=== PATIENT | female | born 1955 | race Caucasian/White ===

== ENCOUNTER → 2017-09-25 | Day surgery (SDC) | payer OTHER, BC ==
--- NOTE | 2017-09-26 17:52 | PATH ---
Surgical Pathology Report Patient Name: EVAN BERMUDEZ [facility]. Rec. #: [id number] /Age/Gender: 1955 (Age: 61) / F Account: [id number] Location: [facility] Taken: 09/25/2017 Received: 09/25/2017 Reported: 09/26/2017 Physicians: Kyaw Rubalcava M.D. Specimen(s) Received LEFT BREAST CORE BIOPSY Clinical History Nonpalpable lesion Ultrasound findings: Highly suspicious/malignant 1.67 cm Final Diagnosis BREAST, LEFT, RETRO, ULTRASOUND GUIDED CORE BIOPSY: INVASIVE DUCTAL CARCINOMA, MODERATELY DIFFERENTIATED, ATLEAST 8 MM IN THIS MATERIAL. COMMENT: Immunohistochemical stain performed and interpreted at [facility] show E-cadherin is positive, supporting ductal phenotype. Findings discussed with Dr. Vickers. Breast prognostic markers are pending and will be reported as an addendum. Electronically Signed Radha Valencia M.D. Addendum Reported: 09/27/2017 Addendum Diagnosis Results of Estrogen Receptor (ER) and Progesterone Receptor (VT) studies performed on block "1 " at [facility] are as follows: ER (clone [id number] mouse monoclonal antibody by [employer]): 99% nuclear staining with strong intensity (Positive). VT (clone16 mouse monoclonal antibody by [employer]): 99% nuclear staining with strong intensity (Positive). Results of Her2 (IHC) & Ki-67 studies performed on block "1 " at [place], [place] ([id number]) are as follows: Her2 IHC (EP3 from [employer], formerly known as [id number], using [employer] Polymer Refine detection kit): 1+ (Negative) Ki-67: ~10-12% (Low proliferative index) Positive and negative controls (internal if applicable) show appropriate results. Formalin fixation and cold ischemic times are within current ASCO/CAP recommendations for ER, VT and Her2 testing. Radha Valencia M.D. Gross Description Received in formalin labeled "left retro," are 6 avila-yellow, cylindrical portions of fibroadipose tissue ranging from 0.4-1.2 cm in length and averaging 0.1 cm in diameter. The specimens are submitted in toto in one cassette. Total formalin fixation time: Approximately 6 hours 09/25/201709/25/2017
== END | disposition home or self-care (01) ==
LOC: JRADUS-SUR 10:07
PROVIDERS: ATTEND Surgery
PROC: 0HBU3ZX Excision of Left Breast, Percutaneous Approach, Diagnostic (ICD-10-PCS; principal; 2017-09-25)
DX: C50.112 Malignant neoplasm of central portion of left female breast (principal); N63.42 Unspecified lump in left breast, subareolar
CPT/HCPCS: 19083; 88305-TC; 88341-TC; 88342-TC

== ENCOUNTER 2017-10-24 12:06 | Day surgery (SDC) | payer OTHER, BC ==
--- NOTE | 2017-10-20 13:32 | HP ---
Admitting History and Physical - Primary Care Physician PCP: Jarad Sharif - Admission Chief Complaint: left breast cancer History of Present Illness: 62 yo female noted to have a left retroareolar spiculated mass on screening mammo. US revealed a 2.4 cm irregular mass which was c/w mod def invasive ductal cancer via core bx. ER/AL positive, Her 2 negative. Patient underwent an MRI which was c/w known cancer without multifocal or contralateral dz. Patient is now presenting for [facility] with snbx, lympho and possible andx. History Source: Patient Limitations to Obtaining History: No Limitations - Past Medical History Renal/: Yes: Other (urinary incontinence) Home Medications - Allergies Allergies/Adverse Reactions: Allergies Allergy/AdvReac Type Severity Reaction Status Date / Time No Known Allergies Allergy Verified 10/20/17 13:44 - Home Medications Home Medications (free text): oxybutynin Family Disease History - Family Disease History Family History: Unremarkable Review of Systems - Review of Systems Breasts: reports: Other (slight flattening of the nipple) Physical Examination Constitutional: Yes: Well Nourished Breast(s): Yes: Other (Central left nipple flattening noted. On palpation, there is a central mass under the nipple. No other suspcious masses or adenopathy noted bilaterally.) Problem List - Problems (1) Breast cancer, left Code(s): C50.912 - MALIGNANT NEOPLASM OF UNSPECIFIED SITE OF LEFT FEMALE BREAST Qualifiers: Breast location: central portion of breast Patient sex: female Assessment/Plan Plan: Left central wide excision with snbx, lymphosctinogram possible andx
[2017-10-20 15:24] VITALS: BMI 28.8
[2017-10-24] MEDS ORDERED: PROPOFOL 20 ML ONE ×5 (13:26→15:03)
[2017-10-24] MEDS ORDERED: MIDAZOLAM HCL 2 MG/2 ML SINGLE DOSE VIAL ONE (13:26)
[2017-10-24] MEDS ORDERED: KETOROLAC TROMETHAMINE 30 MG/1 ML VIAL IVPUSH PRN (13:29)
[2017-10-24] MEDS ORDERED: ONDANSETRON 4 MG/2 ML VIAL IVPUSH PRN ×2 (13:29→15:58)
[2017-10-24] MEDS ORDERED: DEXTROSE 5%-0.45% SALINE 1,000 ML IV SCH (13:30)
[2017-10-24] MEDS ORDERED: ISOSULFAN BLUE 10 MG/ML VIAL SQ ONE (13:41)
[2017-10-24] MEDS ORDERED: PROMETHAZINE HCL 25 MG/1 ML VIAL IVPUSH PRN (15:58)
[2017-10-24] MEDS ORDERED: oxyCODONE HCL 5 MG TABLET PO PRN ×2 (15:58)
[2017-10-24] MEDS ORDERED: LACTATED RINGERS SOLUTION 1,000 ML IV SCH (16:00)
[2017-10-24] MEDS ORDERED: ONDANSETRON 4 MG/2 ML VIAL ONE (16:22)
[2017-10-24] MEDS ORDERED: ONDANSETRON 4 MG/2 ML VIAL IVPUSH ONE (16:25)
--- NOTE | 2017-10-24 16:49 | OP ---
DATE OF OPERATION: 10/24/2017 PREOPERATIVE DIAGNOSIS: Left central breast cancer. POSTOPERATIVE DIAGNOSIS: Left central breast cancer. PROCEDURE: Left breast central wide excision with left axillary sentinel lymph node biopsy. ANESTHESIA: General laryngeal mask airway. Patient also had a 3 x 4 cm tissue transfer closure. PRIMARY SURGEON: Lola Sharif M.D. CARTRIDGE FEEDER: Taz Mauricio COMPLICATIONS: There were no complications. Briefly, the patient is a 61-year-old G1, P1, post menopausal white female of [place] descent, was found to have a left retroareolar spiculated density on screening mammography in September of 2017. Measured about 2.4 cm on ultrasound, and ultrasound-guided core biopsy showed a moderately differentiated invasive duct cancer which was ER/NE positive, HER2/anastasiia negative, with a low Ki-67. MRI showed a localized cancer with no multifocal or contralateral disease. The patient was advised on undergoing a central left breast wide excision given the proximity of the cancer to the nipple as well as the sentinel lymph node biopsy. The patient was brought in for the procedure on October 24, 2017. She first underwent a lymphoscintigraphy through an intradermal periareolar injection of technetium and was brought to the [facility] holding area. In the holding area, site verification was made and informed consent was obtained. She did sign consent for quality of life study as well. The patient was brought into the operating room, laid on the OR table in the supine position. Venodynes were placed on the lower extremities prior to induction. She received a gram of Ancef prior to incision. She underwent general laryngeal mask airway anesthesia, and the left breast was sterilely prepped and draped in usual fashion with the left arm prepped in the field. 3 mL of Lymphazurin blue were injected intradermally and peritumorally around the central region of the left breast nipple areolar complex. Massage was instituted. An incision was made just below the hair-bearing area of the left axilla, and dissection was undertaken. A blue lymphatic was easily seen into a blue hot lymph node which had a 10-second gamma count of 1975. No other blue or hot nodes were found, and background count after removal of this one node was 30. The node was placed in formalin, sent to pathology for permanent section. Hemostasis was achieved. The axillary wound was then closed using interrupted 2-0 plain suture, and the skin was closed using interrupted 3-0 deep dermal Vicryl suture and a running 4-0 subcuticular Monocryl suture. The wide excision was then undertaken around the central region of the left breast around the palpable breast cancer. An elliptical incision was made, encompassing the nipple areolar complex, and dissection was undertaken around the cancer deep into the central region of the left breast through a wedge incision. This specimen was removed, and was oriented with a long lateral, short superior suture, and specimen radiograph showed multiple clips in question. Hemostasis was achieved. At this point separate margins were taken on the superior, inferior, medial, lateral, deep aspect with the sutures marking the biopsy cavity side and all these margins were sent separately to pathology in formalin. The breast parenchyma was then reapproximated using a 4 x 3 cm tissue transfer technique. The breast tissue was undermined and reapproximated in the central region of the left breast using 2-0 plain suture. The skin was closed using interrupted 3-0 deep dermal Vicryl suture and a running 4-0 subcuticular Monocryl suture. Mastisol and Steri-Strips were applied over the wound, compressive dressing placed over this. She was placed in a surgical bra postoperatively. The patient had laryngeal mask airway tube removed at the end of the case to be recovered in the post-anesthesia care unit and discharged home the same day when discharge criteria are met. All sponge, needle counts are correct at this point in the case. Estimated blood loss was about 50 mL. She was hemodynamically stable throughout. The patient will follow from the office in one week for formal wound pathology check. LOLA SHARIF M.D. [id number]
[2017-10-24] MEDS ORDERED: KETOROLAC TROMETHAMINE 30 MG/1 ML VIAL ONE (17:01)
[2017-10-24 17:52] VITALS: BP 147/81; PULSE 81; TEMP 99
== END 2017-10-24 17:50 | disposition home or self-care (01) ==
LOC: FASU 12:06
PROVIDERS: ATTEND Surgery Surgical Oncology
PROC: 0HBU0ZZ Excision of Left Breast, Open Approach (ICD-10-PCS; principal; 2017-10-24 14:29)
PROC: 07B60ZX Excision of Left Axillary Lymphatic, Open Approach, Diagnostic (ICD-10-PCS; 2017-10-24 14:29)
DX: C50.112 Malignant neoplasm of central portion of left female breast (principal)
CPT/HCPCS: 78195-TC; 94760; A9541

== ENCOUNTER 2018-11-23 07:46 | Day surgery (SDC) | payer BC ==
[2018-11-13 12:33] VITALS: BMI 29.2
[2018-11-23] MEDS ORDERED: EPINEPHrine/PF 1 MG/1 ML (1:1,000) AMPULE ONE (09:55)
[2018-11-23] MEDS ORDERED: LIDOCAINE 1%/EPI 1:100000 (20 ML MULTI DOSE VIAL) ONE (09:55)
[2018-11-23] MEDS ORDERED: LIDOCAINE HCL 1% PRESERVATIVE FREE - 30ML VIAL ONE (09:55)
[2018-11-23] MEDS ORDERED: MIDAZOLAM HCL 2 MG/2 ML SINGLE DOSE VIAL ONE (10:00)
[2018-11-23] MEDS ORDERED: PROPOFOL 20 ML ONE ×6 (10:15→11:08)
[2018-11-23] MEDS ORDERED: ceFAZolin SODIUM 1 GM VIAL ONE (10:43)
[2018-11-23] MEDS ORDERED: DEXAMETHASONE SOD PHOSPHATE 4 MG/1 ML VIAL ONE (10:46)
[2018-11-23] MEDS ORDERED: ONDANSETRON 4 MG/2 ML VIAL ONE ×2 (10:46→12:54)
[2018-11-23] MEDS ORDERED: LIDOCAINE 1%/EPI 1:100000 (50 ML MULTI DOSE VIAL) INF ONE (10:57)
[2018-11-23] MEDS ORDERED: BACITRACIN 15 GM TUBE TOPICAL OINTMENT ONE (12:14)
[2018-11-23] MEDS ORDERED: oxyCODONE HCL 5 MG TABLET PO PRN (12:41)
[2018-11-23] MEDS ORDERED: ONDANSETRON 4 MG/2 ML VIAL IVPUSH PRN (12:41)
[2018-11-23] MEDS ORDERED: LACTATED RINGERS SOLUTION 1,000 ML IV SCH (12:45)
--- NOTE | 2018-11-23 12:50 | OP ---
Operative Note - Note: Operative Date: 11/23/18 Pre-Operative Diagnosis: Left breast cancer(history of) Operation: subcutaneous tissue transfer from abdomen and flanks to left breast, Left nipple reconstruction and right breast reduction Surgeon: Toy Rodriguez Nocturnist Physician: Sindy Perez Anesthesiologist/[employer]ER: Lam Perez Anesthesia: General Estimated Blood Loss (mls): 30 Fluid Volume Replaced (mls): 1,200 Operative Report Dictated: Yes
--- NOTE | 2018-11-23 12:54 | SURG ---
Surgery Flexographic Press Set Up Operator Note Flexographic Press Set Up Operator: Sindy Perez PA-C Date of Service: 11/23/18 Diagnosis: left breast cancer Procedure: subcutaneous tissue transfer from abdomen and flanks to left breast, Left nipple reconstruction and right breast reduction I was present for the entirety of the operative procedure. For further detail, please refer to operative report. Visit type - Case Type Case Type: Scheduled - Emergency Emergency Visit: No - New patient This patient is new to me today: Yes Date on this admission: 11/23/18
[2018-11-23 14:41] VITALS: TEMP 98.2
[2018-11-23 15:26] VITALS: BP 126/74; PULSE 76
--- NOTE | 2018-11-24 07:23 | OP ---
DATE OF OPERATION: 11/23/2018 SURGEON: Lola Rodriguez MD ESTIMATING MANAGER SURGEON: ELIECER Galvan PREOPERATIVE DIAGNOSES: 1. Acquired left chest wall deformity status post left cancer procedure with extirpation of the breast. 2. Asymmetry of reconstructed chest wall. 3. Macromastia, right breast. 4. Absent nipple areolar complex, left breast. POSTOPERATIVE DIAGNOSES: 1. Acquired left chest wall deformity status post left cancer procedure with extirpation of the breast. 2. Asymmetry of reconstructed chest wall. 3. Macromastia, right breast. 4. Absent nipple areolar complex, left breast. OPERATIVE PROCEDURE: 1. Reconstruction of left chest wall with other technique. 2. Right breast reduction mammoplasty. 3. Left breast nipple areolar reconstruction. OPERATIVE INDICATION: The patient is a 63-year-old white female who presents with a central wide defect of the breast after extirpation of the breast itself and asymmetry of the reconstructed chest wall with volume discrepancy and absent nipple areolar complex. She also had significant macromastia of the right breast and required reduction for symmetry of the reconstructed breast. The risks and benefits of surgical versus nonsurgical alternatives as well as the material complications were described to the patient on multiple occasions preoperatively. She agreed to the planned procedure. All questions were asked and answered. OPERATIVE PROCEDURE IN DETAIL: The patient was taken to the operating room. After induction of general anesthesia in the supine position, both arms were extended and padded. Venodyne boots were placed. The time-out was called and placement of sterile drapes was carried out. Attention was first taken towards the markings, which were made in the standing position for outline of the nipple areolar complex reconstruction, the reduction mammoplasty, and the reconstruction of the breast with other technique. Then 1% local lidocaine anesthesia was infiltrated into the marked areas on both breasts, and after allowing topical anesthesia and hemostasis, attention was turned to the left breast. This breast had previously had radiation therapy, and induration and swelling was seen in the central portion of the breast. The markings for a nipple areolar reconstruction were reconfirmed and remarked, remeasured, and confirmed. At this point, attention was turned to the left breast. Incision was made according to the pattern of the left breast nipple areolar construction using double opposing tab reconstruction. Incisions were made under optical magnification of 2.5 power down through the skin, to the subcutaneous tissue, through the subcutaneous tissue, down to the underlying deep tissue of the breast. Flaps were elevated in the usual fashion for double opposing tab nipple areolar reconstruction. Flaps were then elevated, hemostasis meticulously obtained, and the flaps rotated into new position and tagged using 3-0 PDS sutures in interrupted fashion. A nipple areolar reconstruction was fashioned using this flap technique and then the tab was sutured down on top of the reconstructed nipple. Multiple layers of suture using 3-0 PDS suture on the deep tissue, 5-0 running plain catgut on the skin, and the double opposing tab. A circular areolar incision was made around the No. 42 nipple areolar cutter after this was done and then the wounds closed using 5-0 plain catgut suture in a running fashion. Attention was then turned to the abdomen. Incisions were planned in the abdominal wall just over the lateral flank to the deep fascia over the rectus and external oblique muscles after allowing topical anesthesia and hemostasis. Tissue was harvested from the right and left sides into reconstruct the breast with other technique. This tissue was then transferred to the back table, washed, cleansed, and prepared for reconstruction. Attention was turned to the right breast. A circular areolar incision with vertical component was carried out using the SPAIR technique with elevation of the breast with an inferior pedicle. A block of tissue was removed from the upper outer quadrant of the breast, lateral and medial portions of the superior crescent. Breast tissue was sent for pathologic diagnosis to rule out breast cancer. Once this was accomplished, copiously irrigated and hemostasis was obtained of the right breast. The pedicle was tacked into position using 2-0 Vicryl sutures in interrupted fashion and then the circumvertical incisions were tailor tacked into a new position, deepithelialized according to the pattern, and then sutured closed using multiple layers of suture with 3-0 PDS suture on the deep tissue, 3-0 on the deep dermal fashion, and a subcuticular suture with 3-0 V-Lock suture. The tissue was then transferred to the left breast in the central, medial, lateral components of the left breast, which had been previously harvested from the abdominal wall. Good shape and contour were then seen in a sitting position. All wounds were dressed sterilely with compressive and protective dressing over the new nipple areolar complex reconstruction and fluff dressings on the breast with a surgery bra. She tolerated the procedure well. She was awakened, extubated, and transferred to the recovery room in satisfactory condition. LOLA RODRIGUEZ M.D. [id number]
--- NOTE | 2018-11-27 15:04 | PATH ---
Surgical Pathology Report Patient Name: EVAN BERMUDEZ [facility]. Rec. #: [id number] /Age/Gender: 1955 (Age: 63) / F Account: [id number] Location[facility] Taken: 11/23/2018 Received: 11/23/2018 Reported: 11/27/2018 Physicians: Toy Rodriguez Specimen(s) Received RIGHT BREAST TISSUE Clinical History Left breast cancer, right reduction, rule out Ca Final Diagnosis BREAST TISSUE, RIGHT, REDUCTION: BENIGN BREAST TISSUE. SKIN WITH NO PATHOLOGIC FINDINGS. Electronically Signed Lindsay Garcia M.D. Gross Description Received in formalin labeled "right breast tissue," is a 49 g, 9.5 x 6.5 x 2.3 cm aggregate of multiple unoriented portions of fibroadipose tissue and avila, unremarkable skin. Sectioning reveals foci of white fibrous tissue. Tuck Pointer sections are submitted in 2 cassettes. /11/26/2018 saudi/11/26/2018
== END 2018-11-23 15:20 | disposition home or self-care (01) ==
LOC: FASU 07:46
PROVIDERS: ATTEND Plastic Surgery
PROC: 0HRU07Z Replacement of Left Breast with Autologous Tissue Substitute, Open Approach (ICD-10-PCS; principal; 2018-11-23 09:00)
PROC: 0HRX07Z Replacement of Left Nipple with Autologous Tissue Substitute, Open Approach (ICD-10-PCS; 2018-11-23 09:00)
PROC: 0HBT0ZZ Excision of Right Breast, Open Approach (ICD-10-PCS; 2018-11-23 09:00)
DX: M95.4 Acquired deformity of chest and rib (principal); Z85.3 Personal history of malignant neoplasm of breast; Z90.12 Acquired absence of left breast and nipple; N65.1 Disproportion of reconstructed breast; N62 Hypertrophy of breast; N64.59 Other signs and symptoms in breast
CPT/HCPCS: 88307-TC; 94760

== ENCOUNTER 2021-09-09 04:46 | Day surgery (SDC) | payer OTHER, BC ==
[2021-09-01 12:45] VITALS: BMI 28.3
[2021-09-09 14:41] VITALS: TEMP 98
[2021-09-09 15:33] VITALS: BP 129/64; PULSE 65
== END 2021-09-09 15:47 | disposition home or self-care (01) ==
LOC: JASU-ENDO 04:46
PROVIDERS: ATTEND Internal Medicine Gastroenterology
PROC: 0DJD8ZZ Inspection of Lower Intestinal Tract, Via Natural or Artificial Opening Endoscopic (ICD-10-PCS; principal; 2021-09-09 13:15)
DX: Z12.11 Encounter for screening for malignant neoplasm of colon (principal); K64.8 Other hemorrhoids; K57.30 Diverticulosis of large intestine without perforation or abscess without bleeding